=== PATIENT | male | born 1995 | race Caucasian/White ===

== ENCOUNTER 2016-11-18 18:35 | Emergency (ER) | payer SELFPAY ==
[~2016-11-18] VITALS: Ht 170.2 cm; Wt 74.8 kg
[~2016-11-18 18:35] MED LIST: MPR22TI TP; ONDA8TAB9 PO; SULF-222 PO; SULF1TAB35 PO
[2016-11-18] MEDS ORDERED: RX-ONDANSETRON 4 MG ODT (ZOFRAN) PPK #4 PO STA (19:09)
[2016-11-18] MEDS ORDERED: ONDA4TAB8 PO (19:11)
--- NOTE | 2016-11-18 19:11 | ED GI ---
General Chief Complaint: Abdominal/GI Problems Stated Complaint: NAUSEA Nursing Triage Note: Pt. advises he has been nauseated x 2 days without improvement. He advises nausea is present prior to and after eating. Sepsis Screen: No Definite Risk Source of Information: Patient History of Present Illness Time Seen By Provider: 19:00 Initial Comments C/O NAUSEA X 2 DAYS NO VOMITING STATES THE SMELL OF FOOD MAKES HIM NAUSEATED NO ABDOMINAL PAIN NO FEVER NO DIARRHEA NO HISTORY OF GI PROBLEMS VOIDING A NORMAL AMOUNT AND VOIDED IMMEDIATELY PRIOR TO ARRIVAL STATES HE HAS AT THE [employer] AND ATE A BANANA AND DRANK SOME TEA AND THEN CAME HERE--STATES THAT IS THE ONLY THING HE HAS HAD TO EAT OR DRINK TODAY NO KNOWN SICK CONTACTS OR SUSPICIOUS FOODS [place] [place]ies and Home Medications Allergies Coded Allergies: No Known Drug Allergies (Unverified Allergy, Mild, 02/05/09) Home Medications Ondansetron 4 Mg Tab.rapdis, 4 MG PO Q4H, #5 Prescribed by: CORDELL PACHECO on 11/18/16 1911 Sulfamethoxazole/Trimethoprim 1 Each Tablet, 1 EACH PO BID, #14 Prescribed by: ISATU ESTEVEZ on 02/10/16 1756 Review of Systems Constitutional: no symptoms reported Respiratory: No Symptoms Reported Cardiovascular: No Symptoms Reported Gastrointestinal: See HPI, Nausea, Poor Appetite, Poor Fluid Intake, Denies Vomiting Genitourinary: No Symptoms Reported Musculoskeletal: no symptoms reported Skin: no symptoms reported Psychiatric/Neurological: No Symptoms Reported Endocrine: No Symptoms Reported Hematologic/Lymphatic: No Symptoms Reported Past Mmpvxuu-Psoqhk-Khmvqr Hx Patient Social History Alcohol Use: Past History (HISTORY OF MODERATE USE, CLAIMS NONE IN 3 YEARS, PER PT ON 11/18/16) Recreational Drug Use: No (DENIES) Smoking Status: Current Everyday Smoker (1 PPD) Type Used: Cigarettes Recent Foreign Travel: No Contact w/Someone Who Travel: No Recent Infectious Disease Expo: No Recent Hopitalizations: No Seasonal Allergies Seasonal Allergies: No Surgeries HX Surgeries: No Respiratory Hx Respiratory Disorders: No Cardiovascular Hx Cardiac Disorders: No Neurological Hx Neurological Disorders: No Reproductive System Hx Reproductive Disorders: No Genitourinary Hx Genitourinary Disorders: No Gastrointestinal Hx Gastrointestinal Disorders: No Musculoskeletal Hx Musculoskeletal Disorders: No Endocrine Hx Endocrine Disorders: No HEENT HX ENT Disorders: No Cancer Hx Cancer: No Psychosocial Hx Psychiatric Problems: No Integumentary HX Skin/Integumentary Disorder: No Blood Transfusions Hx Blood Disorders: No Family Medical History Family Medial History: FH: epilepsy 19 FATHER Physical Exam Vital Signs VS - Last 72 Hours, by Label 11/18/16 11/18/16 18:45 19:15 Temp 98.9 Pulse 86 86 Resp 14 14 B/P (MAP) 135/91 Pulse Ox 98 98 O2 Delivery Room Air Capillary Refill : Less Than 3 Seconds General Appearance: no apparent distress, other (DIRTY, UNKMEPT,MALODOROUS. REEKS OF CIGARETTES. SMILING, TALKATIVE. DOES NOT APPEAR ILL. 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 Referrals: [facility] (PCP/Family) Primary Care Physician Patient Instructions: Viral Gastroenteritis, Adult (DC) Add. Discharge Instructions: CLEAR LIQUIDS--WATER, BROTH, JELLO, GATORADE TOMORROW IF YOU ARE BETTER, ADD BRATS DIET TO CLEAR LIQUIDS--BANANAS, RICE, APPLESAUCE, TOAST, SALTINES FOLLOW UP WITH [facility] IN 2-3 DAYS IF NO BETTER All discharge instructions reviewed with patient and/or family. Voiced understanding. Scripts Ondansetron (Zofran Odt) 4 Mg Tab.rapdis 4 MG PO Q4H for Nausea/Vomiting, #5 TAB Prov: CORDELL PACHECO DO 11/18/16 CORDELL PACHECO DO Nov 18, 2016 19:11
[2016-11-18 19:15] VITALS: BP 135/91
== END 2016-11-18 19:14 | disposition home or self-care (01) ==
LOC: EDUNIT# 18:35 → ER 18:37
DX: R11.0 Nausea (principal); F17.210 Nicotine dependence, cigarettes, uncomplicated
CPT/HCPCS: 99283

== ENCOUNTER 2016-11-25 20:10 | Emergency (ER) | payer SELFPAY ==
[~2016-11-25] VITALS: Ht 175.3 cm; Wt 74.8 kg
[~2016-11-25 20:10] MED LIST changes: +ONDA4TAB8 PO
[2016-11-25 22:12] VITALS: BP 113/86
== END 2016-11-25 21:45 | disposition left against medical advice (07) ==
LOC: EDUNIT# 20:10 → ER 20:14
DX: R07.89 Other chest pain (principal); Z53.21 Procedure and treatment not carried out due to patient leaving prior to being seen by health care provider
CPT/HCPCS: 99283

== ENCOUNTER 2017-05-15 16:01 | Emergency (ER) | payer SELFPAY ==
[~2017-05-15] VITALS: Ht 175.3 cm; Wt 72.6 kg
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
--- NOTE | 2017-05-15 16:26 | ED Lower Extremity ---
General Chief Complaint: Lower Extremity Stated Complaint: RT FOOT INJ Source: patient Exam Limitations: no limitations History of Present Illness Time seen by provider: 16:16 Initial Comments Patient presents to ER by private conveyance with a chief complaint of right foot pain all over that started after he dropped a Gackle dresser drawer on his foot at about 11:30 this morning. He has not taken Tylenol Motrin or used ice for his pain because he says he does not have any medicines. He does not take any medicines routinely nor does he have any drug allergies. He denies any serious past medical history or history of trauma or surgeries to his foot or elsewhere. He says it hurts when he steps down any weight on it. No prior history of trauma before this morning. He says it is a little swollen compared to his left foot as well. Allergies and Home Medications Allergies Coded Allergies: No Known Drug Allergies (Unverified , 11/25/16) Constitutional: No chills, No fever, No malaise Respiratory: No cough, No short of breath Cardiovascular: No chest pain, No palpitations Gastrointestinal: No diarrhea, No nausea Musculoskeletal: see HPI (right foot), No back pain, joint pain Skin: No pruritus, No rash Psychiatric/Neurological: Denies Numbness, Denies Paresthesia, Denies Pre- Existing Deficit, Denies Weakness Past Cjzccsa-Gwlnir-Sikesr Hx Patient Social History Alcohol Use: Past History Recreational Drug Use: No Smoking Status: Current Everyday Smoker Type Used: Cigarettes (0.25 ppd) Recent Foreign Travel: No Contact w/Someone Who Travel: No Recent Hopitalizations: No Seasonal Allergies Seasonal Allergies: No Surgeries History of Surgeries: Yes (dental) Respiratory History of Respiratory Disorde: No Cardiovascular History of Cardiac Disorders: No Neurological History of Neurological Disord: No Reproductive System Hx Reproductive Disorders: No Genitourinary History of Genitourinary Disor: No Gastrointestinal History of Gastrointestinal Di: No Musculoskeletal History of Musculoskeletal Dis: No Endocrine History of Endocrine Disorders: No HEENT History of HEENT Disorders: No Cancer History of Cancer: No Psychosocial History of Psychiatric Problem: No Integumentary History of Skin or Integumenta: No Blood Transfusions History of Blood Disorders: No Family Medical History Family Medial History: FH: epilepsy 19 FATHER Physical Exam Vital Signs Vital Sign - Last 12Hours 05/15/17 16:20 Temp 98.0 Pulse 99 Resp 18 B/P (MAP) 148/78 Pulse Ox 98 Capillary Refill : General Appearance: WD/WN, mild distress HEENT: pharynx normal, other (tremulous voice) Cardiovascular: normal peripheral pulses, no edema Respiratory: no respiratory distress, no accessory muscle use Gastrointestinal: non tender, soft Legs: bilateral leg non-tender, bilateral leg normal inspection, bilateral leg normal range of motion, bilateral leg no evidence of injury Knees: bilateral knee non-tender, bilateral knee normal inspection, bilateral knee normal range of motion, bilateral knee no evidence of injury Ankles: bilateral ankle non-tender, bilateral ankle normal inspection, bilateral ankle normal range of motion, bilateral ankle no evidence of injury Feet: left foot non-tender, bilateral foot normal inspection, bilateral foot normal range of motion, left foot no evidence of injury, right foot bone tenderness (lateral metatarsal 4 and 5), right foot pain, right foot soft tissue tenderness, right foot other (patient can move toes are active range of motion despite poor effort secondary to pain. No edema noted.) Neurologic/Tendon: normal sensation, normal motor functions, normal tendon functions, responds to pain Neurologic/Psychiatric: alert, normal mood/affect, oriented x 3 Skin: normal color, warm/dry Progress/Results/Core Measures Results/Orders My Orders Orders - MELISSA INTERIANO Foot, Right, 3 View (05/15/17 16:19) Ibuprofen Tablet (Motrin Tablet) (05/15/17 16:30) Medications Given in ED Current Medications Medications Dose Ordered Sig/Marychuy Route Start Time Stop Time Status Last Admin Dose Admin Ibuprofen 800 mg ONCE ONCE PO 05/15/17 16:30 05/15/17 16:31 DC 05/15/17 16:26 800 MG Vital Signs/I&O Vital Sign - Last 12Hours 05/15/17 16:20 Temp 98.0 Pulse 99 Resp 18 B/P (MAP) 148/78 Pulse Ox 98 Diagnostic Imaging Diagonstic Imaging: Xray Plain Films/CT/US/NM/MRI: other (right foot) Comments No acute fracture. 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 [facility] [employer] [facility] [employer] [facility] [place], [place] NAME: FRANCISCO MONTILLA [facility] REC#: [id number] PT STATUS: REG ER : 1995 PHYSICIAN: MELISSA INTERIANO MD ADMIT DATE: 05/15/17/ER Draft Date of Exam:05/15/17 FOOT, RIGHT, 3 VIEW Three views of the right foot. INDICATION: Severe pain in the right foot after dresser dropped on the foot. FINDINGS: The medial sesamoid bone demonstrates a transverse lucency with suggestion of sclerotic border suggestive of a chronic injury or congenital bipartite sesamoid bone rather than an acute fracture. There is satisfactory alignment of the joints and no definite acute fracture seen. No radiopaque foreign body. 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 No definite acute fracture seen. Dictated on workstation # [id number] Dict: 05/15/17 1646 Trans: 05/15/17 1652 KB [id number] Interpreted by: KATHERINE HOOVER MD Electronically signed by: Reviewed: Reviewed by Me Departure Impression Impression: Primary Impression: Foot pain, right Disposition: 01 HOME, SELF-CARE Condition: Stable Departure-Patient Inst. Decision time for Depature: 17:37 Referrals: [facility] [place] (PCP/Family) Primary Care Physician Add. Discharge Instructions: Remember the pneumonic rice: Rest, ice, compression and elevation. Stay off the foot when you don't need. Apply ice for 20 minutes every 4-6 hours as needed for pain for the first several days. Wear an Pablo bandage or other compression dressing around your foot for pain relief. And elevate the foot above the level of your heart when it is convenient. All discharge instructions reviewed with patient and/or family. Voiced understanding. Copy Copies To 1: VISHNU WHITTINGTON TITUS J May 15, 2017 16:26
[2017-05-15] MEDS ORDERED: IBUPROFEN 800 MG (MOTRIN) TAB PO ONE (16:30)
--- NOTE | 2017-05-15 16:53 | Diagnostic Imaging Report ---
Three views of the right foot. INDICATION: Severe pain in the right foot after dresser dropped on the foot. FINDINGS: The medial sesamoid bone demonstrates a transverse lucency with suggestion of sclerotic border suggestive of a chronic injury or congenital bipartite sesamoid bone rather than an acute fracture. There is satisfactory alignment of the joints and no definite acute fracture seen. No radiopaque foreign body. 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 No definite acute fracture seen. Dictated by: Dictated on workstation # [id number]
[2017-05-15 17:42] VITALS: BP 148/78
== END 2017-05-15 17:42 | disposition home or self-care (01) ==
LOC: EDUNIT# 16:01 → ER 16:03
DX: M79.671 Pain in right foot (principal); F17.210 Nicotine dependence, cigarettes, uncomplicated
CPT/HCPCS: 73630; 99283

== ENCOUNTER 2020-12-10 18:20 | Emergency (ER) | payer SELFPAY ==
[~2020-12-10] VITALS: Ht 182.9 cm; Wt 59.4 kg
[2020-12-10] MEDS ORDERED: CYCL10TA9 PO (18:49)
--- NOTE | 2020-12-10 18:49 | ED General ---
General Chief Complaint: General Problems/Pain Stated Complaint: CHEST PAIN,LT ARM PAIN AND NUMBNESS Nursing Triage Note: PT REPORTS LEFT ARM DISCOMFORT THAT STARTED ABOUT 20 MINUTES RN DISCHARGE. PT REPORTS HE WAS PLAYING VIDEO GAMES ON THE COUCH WHEN HIS ARM BEGAN TO HURT, THEN BECAME HEAVY, THEN NUMB. PTS SO REPORTS THIS HAPPENS ABOUT ONCE A WEEK BUT HAS NEVER HAD IT CHECKED OUT. Nursing Sepsis Screen: No Definite Risk Source of Information: Patient Exam Limitations: No Limitations History of Present Illness Date Seen by Provider: December 10, 2020 Time Seen by Provider: 18:38 Initial Comments This is a well-appearing 25-year-old male who presents to the ER with complaints of left arm tingling and numbness that started approximate 20 minutes prior to arrival. States his arm felt heavy and numb and then it began to radiate into his left upper shoulder. He has had several episodes over the past 7 months of the same complaint. 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 Pain has been occurring approximately 1-2 times a week for 7 months. States the symptoms come on suddenly and go away usually within 30 minutes. He was close to the hospital so he decided to get checked out. He is a current pack per day smoker, denies illicit drug use. Denies any significant past medical history. Does not take any medications daily. Allergies and Home Medications Allergies Coded Allergies: No Known Drug Allergies (Unverified , 11/25/16) Home Medications Cyclobenzaprine HCl 10 Mg Tablet, 10 MG PO Q8H PRN for SPASMS Prescribed by: NOA MAGALLANES on 12/10/20 3379 Patient Home Medication List Home Medication List Reviewed: Yes Review of Systems Review of Systems Constitutional: no symptoms reported EENTM: no symptoms reported Respiratory: no symptoms reported Cardiovascular: no symptoms reported Gastrointestinal: no symptoms reported Genitourinary: no symptoms reported Musculoskeletal: see HPI Skin: no symptoms reported Psychiatric/Neurological: No Symptoms Reported Hematologic/Lymphatic: No Symptoms Reported Immunological/Allergic: no symptoms reported Past Phpfqaa-Ygzwru-Jxidre Hx Patient Social History Alcohol Use: Rarely Uses Type Used: Cigarettes Recent Infectious Disease Expo: No Recent Hopitalizations: No Seasonal Allergies Seasonal Allergies: No Past Medical History Surgeries: Yes (dental) Respiratory: No Cardiac: No Neurological: No Reproductive Disorders: No Genitourinary: No Gastrointestinal: No Musculoskeletal: No Endocrine: No HEENT: No Cancer: No Psychosocial: No Integumentary: No Blood Disorders: No Family Medical History FH: epilepsy 19 FATHER Physical Exam Vital Signs Vital Signs - First Documented 12/10/20 18:27 Temp 35.6 Pulse 88 Resp 18 B/P (MAP) 124/84 (97) Pulse Ox 97 Capillary Refill : Less Than 3 Seconds Height, Weight, BMI Height: 5'9.00" Weight: 160lbs. oz. 72.885068xp; 17.00 BMI Method:Estimated General Appearance: No Apparent Distress, WD/WN Eyes: Bilateral Eye Normal Inspection, Bilateral Eye EOMI HEENT: PERRL/EOMI, Normal ENT Inspection, Moist Mucous Membranes Neck: Full Range of Motion, Normal Inspection, Non Tender, Supple Respiratory: Chest Non Tender, Lungs Clear, Normal Breath Sounds, No Accessory Muscle Use, No Respiratory Distress; No Pleural Rub, No Stridor Cardiovascular: Regular Rate, Rhythm, No Edema, No Gallop, No Murmur, Normal Peripheral Pulses Gastrointestinal: Normal Bowel Sounds, Non Tender, Soft Back: Normal Inspection, No Vertebral Tenderness, Muscle Spasm (knot on left trapezius ) Neurologic/Psychiatric: Alert, Oriented x3, No Motor/Sensory Deficits, Normal 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, 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 During examination of his back he was noted to have knot on his left trapezius muscle of his left posterior shoulder. After manually manipulating area and massaging, he reported symptoms no longer present. Discussed that this is a chronic issue and he should establish with a primary care provider to have further evaluated due to the persistency of his pain. Reviewed discharge plan of care and he is agreeable with plan. ECG Initial ECG Impression Date: December 10, 2020 Initial ECG Impression Time: 18:28 Initial ECG Rate: 84 Initial ECG Rhythm: Normal Sinus Initial ECG Intervals: Normal Initial ECG Impression: Normal Initial ECG Comparisson: No Previous ECG Available, Unchanged Departure Impression Primary Impression: Muscle spasm Disposition: 01 HOME, SELF-CARE Condition: Improved Departure-Patient Inst. Decision time for Depature: 18:47 Referrals: [facility] (PCP/Family) Primary Care Physician Patient Instructions: Muscle Spasms (DC) Add. Discharge Instructions: Plan: 1. Use ice/heat 20 minutes at a time to left shoulder. 2. May take Tylenol or Ibuprofen as needed for pain per package. 3. Use Flexeril as needed for severe pain per directions. No driving while taking. 4. Return to ER for any new, concerning, or worsening symptoms. All discharge instructions reviewed with patient and/or family. Voiced understanding. Scripts Cyclobenzaprine HCl (Cyclobenzaprine HCl) 10 Mg Tablet 10 MG PO Q8H PRN for SPASMS, #15 TAB 0 Refills Prov: NOA MAGALLANES MASTER DYER 12/10/20 NOA MAGALLANES MASTER DYER December 10, 2020 18:49
[2020-12-10 18:52] VITALS: BP 112/68
== END 2020-12-10 18:55 | disposition home or self-care (01) ==
LOC: EDUNIT# 18:20 → ER 18:23
DX: M62.838 Other muscle spasm (principal)
CPT/HCPCS: 93005; 99281